=== PATIENT | female | born 1950 | race Caucasian/White ===

== ENCOUNTER 2021-02-24 14:07 | Day surgery (SDC) | payer MEDICARE ==
[2021-02-24] MEDS ORDERED: LIDOCAINE HCL 2% 100 MG/5 ML IJ ONE (14:08)
[2021-02-24] MEDS ORDERED: Depo-Medrol 40 MG/ML IM ONE (14:08)
[2021-02-24] MEDS ORDERED: DIPRIVAN 200 MG/20 ML IV ONE (15:19)
[2021-02-24] MEDS ORDERED: Lactated Ringers 1,000 ML IV ONE (16:31)
--- NOTE | 2021-02-25 11:35 | XRAY ---
10 seconds fluoroscopy time in surgery for bilateral L4-S1 MBB.
== END 2021-02-24 15:50 | disposition home or self-care (01) ==
LOC: SDC-PAIN 14:07
PROVIDERS: ATTEND Psychiatry & Neurology Pain Medicine
DX: M47.816 Spondylosis without myelopathy or radiculopathy, lumbar region (principal); F41.9 Anxiety disorder, unspecified; F32.9 Major depressive disorder, single episode, unspecified; I25.10 Atherosclerotic heart disease of native coronary artery without angina pectoris; M06.9 Rheumatoid arthritis, unspecified; I10 Essential (primary) hypertension; E03.9 Hypothyroidism, unspecified; J44.9 Chronic obstructive pulmonary disease, unspecified; Z79.899 Other long term (current) drug therapy
CPT/HCPCS: 64493; 64494; 72020; 77002; J1030; J2704

== ENCOUNTER 2021-10-05 | Emergency (ER) | payer MEDICARE ==
--- NOTE | 2021-10-05 00:44 | ERPHSYRPT ---
- History of Present Illness Source: patient Exam Limitations: no limitations Patient Subjective Stated Complaint: pt c/o cough, +Covid Triage Nursing Assessment: pt c/o cough, +Covid, c/o rt lung hurting due to pneumonia. lungs clear, diminished to bases. Heart tones reg. Pt has cough, prod at times, white, thick sputum. Pt spent 2 nights in [facility], discharged on 10/03/21 per pt. Physician History: 71 yo diagnosed w CV19 on 10/02/21 w 2 night stay at [facility] present w cough/coryza/dyspnea. Pt has a h/o COPD but denies ever smoking. Fever/myalgias/RUBIO/N/V/D are all denied. Room air sats 93-95%. Timing/Duration: other (4-5 days) Cough Quality/Degree: dry cough Possible Cause: no prior episodes Modifying Factors: Improves With: coughing, exertion Associated Symptoms: cough, nasal congestion, nasal drainage, shortness of breath, No fever, No chills, No chest pain/soreness, No dizziness, No earache, No facial pain, No headache, No lightheadedness, No muscle aches, No sinus infection, No sore throat, No wheezing Allergies/Adverse Reactions: Penicillins Allergy (Severe, Verified 10/05/21 00:30) Hives cephalexin monohydrate [From Keflex] Allergy (Verified 10/05/21 00:30) Hives orange juice Adverse Reaction (Verified 10/05/21 00:30) Home Medications: Acyclovir 200 mg Cap [Zovirax 200 mg ] 200 mg PO 5XD 08/03/15 [History] Albuterol 17 gm IH Q6H PRN PRN 08/03/15 [History] Citalopram Hydrobromide [Citalopram HBr] 40 mg PO BID 08/03/15 [History] Clonazepam 0.5 mg [Klonopin 0.5 MG] 0.5 mg PO DAILY 08/03/15 [History] Cyanocobalamin (Vitamin B-12) [B-12] 500 mg PO DAILY 08/03/15 [History] Cyanocobalamin (Vitamin B-12) [Cyanocobalamin Injection] 1,000 mcg IJ DIRECTIONS UNKNOWN 08/03/15 [History] Fexofenadine HCl [Elza] 180 mg PO DAILY 08/03/15 [History] Furosemide 40 mg PO DAILY 08/03/15 [History] Gabapentin 600 mg PO DAILY 08/03/15 [History] Ginkgo Biloba 120 mg PO DAILY 08/03/15 [History] Hydrocodone/Acetaminophen [[place] 7.5-325 Tablet] 1 each PO TID 08/03/15 [History] Ipratropium [place] [Atrovent] 15 ml NS DAILY PRN 08/03/15 [History] Levothyroxine Sodium 125 mcg PO DAILY 08/03/15 [History] Lidocaine HCl 5% Patch [Lidoderm Patch 5%] 1 patch TOP WEEKLY 08/03/15 [History] Milk Thistle 1,000 mg PO DAILY 08/03/15 [History] Nitroglycerin 0.4 mg Tablet [Nitrostat 0.4 MG Tablet] 0.4 mg SL 5XD 08/03/15 [History] Omeprazole 20 MG [Prilosec 20 mg] 20 mg PO BID 08/03/15 [History] Oxybutynin Chloride [Oxybutynin Chloride ER] 10 mg PO BID 08/03/15 [History] Potassium Chloride 20 Meq [Klor-Con 20 MEQ] 20 meq PO DAILY 08/03/15 [History] [place] Jelly/Bee Pollen/P.ginsg [[place] Ginseng Complex Cap] 1 each PO DAILY 08/03/15 [History] Sulfasalazine 500 mg [Azulfidine 500 mg] 500 mg PO QID 08/03/15 [History] Hx Tetanus, Diphtheria Vaccination/Date Given: Yes Hx Influenza Vaccination/Date Given: No Hx Pneumococcal Vaccination/Date Given: No Immunizations Up to Date: Yes Travel Risk - International Travel Have you traveled outside of the country in past 3 weeks: No - Coronavirus Screening Symptoms: Fever, Cough: New Onset, Shortness of Breath, Vomiting/Diarrhea, Headaches/Body Aches/Fatigue Close contact with a COVID-19 positive Pt in past 14-21 Days: No - Vaccine Status Have you recieved a Covid-19 vaccination: No - Review of Systems Constitutional: No Symptoms, Fatigue, Lethargy, Malaise, Weakness Eyes: No Symptoms Ears, Nose, & Throat: No Symptoms, Nose Congestion, Nose Discharge Respiratory: No Symptoms, Cough, Dyspnea Cardiac: No Symptoms Abdominal/Gastrointestinal: No Symptoms Genitourinary Symptoms: No Symptoms Musculoskeletal: No Symptoms Skin: No Symptoms Neurological: No Symptoms Psychological: No Symptoms Endocrine: No Symptoms Hematologic/Lymphatic: No Symptoms Immunological/Allergic: No Symptoms - Past Medical History Pertinent Past Medical History: Yes Neurological History: Migraines, Peripheral Neuropathy ENT History: No Pertinent History Cardiac History: Other Respiratory History: COPD Endocrine Medical History: Hypothyroidism Musculoskeletal History: Fibromyalgia, Osteoarthritis, Rheumatoid Arthritis, Other GI Medical History: GERD, Hepatitis History: Other Psycho-Social History: Depression Female Reproductive Disorders: No Pertinent History Other Medical History: damaged heart valve, leaky bladder, degenerative joint disease, torn tendons L hand - Past Surgical History Past Surgical History: Yes Neuro Surgical History: No Pertinent History Cardiac: No Pertinent History Respiratory: No Pertinent History Gastrointestinal: Cholecystectomy Genitourinary: Other Musculoskeletal: Other Female Surgical History: Hysterectomy Other Surgical History: R shoulder surgery, bilateral knee replacement, bladder stretched - Social History Smoking Status: Never smoker Exposure to second hand smoke: Yes Drug Use: none Patient Lives Alone: No Significant Family History: no pertinent family hx - Female History Hx Now: No - Nursing Vital Signs Nursing Vital Signs: Initial Vital Signs Temperature 98.7 F 10/05/21 00:19 Pulse Rate 99 H 10/05/21 00:19 Respiratory Rate 22 10/05/21 00:19 Blood Pressure 168/111 10/05/21 00:19 O2 Sat by Pulse Oximetry 93 L 10/05/21 00:19 Pain Scale Pain Intensity 3 Hypertensive/Borderline sats - Physical Exam General Appearance: no apparent distress Eye Exam: PERRL/EOMI, eyes nml inspection Ears, Nose, Throat Exam: normal ENT inspection, TMs normal, pharynx normal, moist mucous membranes Neck Exam: normal inspection, non-tender, supple, full range of motion, No meningismus, No mass, No Brudzinski, No Kernig's, No carotid bruit Respiratory Exam: airway intact, crackles/rales (Scattered rales B), No respiratory distress Cardiovascular Exam: regular rate/rhythm, normal heart sounds, normal peripheral pulses, capillary refill <2 sec, No murmur Gastrointestinal/Abdomen Exam: soft, normal bowel sounds, No tenderness Back Exam: normal inspection, normal range of motion, No CVA tenderness, No vertebral tenderness Extremity Exam: normal inspection, normal range of motion Neurologic Exam: alert, oriented x 3, cooperative, 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, no rmal mood/affect, nml cerebellar function, nml station & gait, sensation nml, No motor deficits, No sensory deficit Skin Exam: normal color, warm, dry Lymphatic Exam: No adenopathy SpO2 Interpretation: normal SpO2: 94 O2 Delivery: Room Air - Course Nursing assessment & vital signs reviewed: Yes EKG Interpreted by Me: RATE (NSR/Normal QT-QTc/Poor R wave progression/Flat T waves/Nonspecific ST-T wave changes) - Radiology Exams Chest X-ray Interpretation: Interpreted by me (CXR consistent w CV19) Ordered Tests: Active Orders 24 hr Category Date Time Status CHEST 1 VIEW (PORTABLE) Stat Exams 10/05/21 00:38 Taken CBC W DIFF Stat Lab 10/05/21 01:20 Completed CMP Stat Lab 10/05/21 01:15 Completed Manual Differential NC Stat Lab 10/05/21 01:20 Completed NT PRO BNP Stat Lab 10/05/21 01:15 Completed PROTIME WITH INR Stat Lab 10/05/21 01:25 Completed PTT Stat Lab 10/05/21 01:25 Completed TROPONIN Q3H Lab 10/05/21 01:15 Completed Medication Summary Discontinued Medications Generic Name Dose Route Start Last Admin Trade Name Freq PRN Reason Stop Dose Admin Dexamethasone Sodium Phosphate 10 mg 10/05/21 02:13 10/05/21 02:21 Dexamethasone Sod Phosphate 10 Mg/Ml IV 10/05/21 02:14 10 mg STAT ONE Administration Dexamethasone Sodium Phosphate Confirm 10/05/21 02:20 Dexamethasone Sod Phosphate 10 Mg/Ml Administered 10/05/21 02:21 Dose 10 mg .ROUTE .STK-MED ONE Lab/Rad Data: Laboratory Result Diagrams 10/05/21 01:20 10/05/21 01:15 Laboratory Results 10/05/21 10/05/21 10/05/21 Range/Units 01:25 01:20 01:15 WBC 5.7 (4.0-10.5) K/mm3 RBC 4.90 (4.1-5.4) M/mm3 Hgb 12.0 (12.0-16.0) gm/dl Hct 38.8 (35-47) % MCV 79.2 (78-100) fl MCH 24.5 L (26-32) pg MCHC 30.9 L (32-36) g/dl RDW 14.9 H (11.5-14.0) % Plt Count 361 (150-450) K/mm3 MPV 8.8 (7.5-11.0) fl PT 13.0 H (9.4-12.5) SECONDS INR 1.10 (0.8-3.0) APTT 28.1 (25.1-36.5) SECONDS Sodium (137-145) mmol/L Potassium (3.5-5.1) mmol/L Chloride (98-107) mmol/L Carbon Dioxide (22-30) mmol/L Anion Gap (5-15) MEQ/L BUN (7-17) mg/dL Creatinine (0.52-1.04) mg/dL Estimated GFR ML/MIN Glucose (74-106) mg/dL Calcium (8.4-10.2) mg/dL Total Bilirubin (0.2-1.3) mg/dL AST (14-36) U/L ALT (0-35) U/L Alkaline Phosphatase (38-126) U/L Troponin I 0.031 (0.000-0.034) ng/mL NT-Pro-B Natriuret Pep (0-900) pg/mL Serum Total Protein (6.3-8.2) g/dL Albumin (3.5-5.0) g/dL 10/05/21 Range/Units 01:15 WBC (4.0-10.5) K/mm3 RBC (4.1-5.4) M/mm3 Hgb (12.0-16.0) gm/dl Hct (35-47) % MCV (78-100) fl MCH (26-32) pg MCHC (32-36) g/dl RDW (11.5-14.0) % Plt Count (150-450) K/mm3 MPV (7.5-11.0) fl PT (9.4-12.5) SECONDS INR (0.8-3.0) APTT (25.1-36.5) SECONDS Sodium 140 (137-145) mmol/L Potassium 3.3 L (3.5-5.1) mmol/L Chloride 99 (98-107) mmol/L Carbon Dioxide 32 H (22-30) mmol/L Anion Gap 12.5 (5-15) MEQ/L BUN 14 (7-17) mg/dL Creatinine 0.71 (0.52-1.04) mg/dL Estimated GFR > 60.0 ML/MIN Glucose 103 (74-106) mg/dL Calcium 8.9 (8.4-10.2) mg/dL Total Bilirubin 0.70 (0.2-1.3) mg/dL AST 25 (14-36) U/L ALT 11 (0-35) U/L Alkaline Phosphatase 59 (38-126) U/L Troponin I (0.000-0.034) ng/mL NT-Pro-B Natriuret Pep 299 (0-900) pg/mL Serum Total Protein 6.8 (6.3-8.2) g/dL Albumin 3.8 (3.5-5.0) g/dL - Progress Progress Note: 10/05/21 02:15 10mg IV Decadron 10/05/21 03:29 Pt w good sats during entire stay Counseled pt/family regarding: lab results, diagnosis, need for follow-up, rad results - Departure Departure Disposition: Home Clinical Impression: COVID-19 Condition: Stable Critical Care Time: No Critical Care Time(excluding separately billable procedures): Critical 30-74 mins Referrals: LAURA MILLAN [Primary Care Provider] - Follow up/PCP as directed Instructions: Cough, Adult (DC), Coronavirus Disease 2019 (COVID-19) (DC) Additional Instructions: Get a pulse oximeter and monitor oxygen saturation 2-3 times a day Return to ER for persistent oxygen saturation less than 90% Follow up with your family MD in 2-3 days
[2021-10-05 01:25] LABS: Hematocrit 38.8 % (35-47); Mean Cell Volume 79.2 fl (78-100); Mean Corpuscular Hemoglobin 24.5 pg (26-32); Mean Corpuscular Hgb Concent. 30.9 g/dl (32-36); Mean Platelet Volume 8.8 fl (7.5-11.0); Platelet Count 361 K/mm3 (150-450); Red Cell Distribution Width 14.9 % (11.5-14.0); White Blood Count 5.7 K/mm3 (4.0-10.5)
[2021-10-05 01:33] LABS: INR 1.1 (0.8-3.0)
[2021-10-05 01:36] LABS: PTT 28.1 SECONDS (25.1-36.5)
[2021-10-05 01:49] LABS: ALBUMIN 3.8 g/dL (3.5-5.0); ALKALINE PHOSPHATASE 59 U/L (38-126); ANION GAP 12.5 MEQ/L (5-15); BLOOD UREA NITROGEN 14 mg/dL (7-17); CHLORIDE 99 mmol/L (98-107); Calcium 8.9 mg/dL (8.4-10.2); Carbon Dioxide 32 mmol/L (22-30); Creatinine 1 0.71 mg/dL (0.52-1.04); EST GLOMERULAR FILTRATION RATE > 60.0 ML/MIN; Glucose 103 mg/dL (74-106); NT PRO BNP 299 pg/mL (0-900); Potassium 3.3 mmol/L (3.5-5.1); SGOT/AST 25 U/L (14-36); SGPT/ALT 11 U/L (0-35); SODIUM 140 mmol/L (137-145); Total Protein 6.8 g/dL (6.3-8.2)
[2021-10-05] MEDS ORDERED: DECADRON 10MG INJ. IV ONE (02:13)
[2021-10-05] MEDS ORDERED: DECADRON 10MG INJ. ONE (02:20)
[2021-10-05 02:22] VITALS: PULSE 97
[2021-10-05 02:24] VITALS: BP 154/92
[2021-10-05 03:30] VITALS: O2SAT 94
[2021-10-05 04:21] LABS: Lymphocytes 18 % (24-44); Microcytosis 1+; Monocyte 4 % (0.0-12.0); Neutrophils 78 % (36.0-66.0); Platelet Estimate NORMAL (NORMAL); Total Cells Counted 100
--- NOTE | 2021-10-05 08:49 | XRAY ---
Indication: Positive Covid 19. Comparison: None Portable chest demonstrates mild diffuse interstitial alveolar opacities left greater than right without consolidation/large effusion. Heart not enlarged. Descending aorta is arteriosclerotic and tortuous. Bony thorax intact with osteopenia, degenerative changes, and right shoulder arthroplasty. Impression: Diffuse bilateral interstitial alveolar opacities. Rule out Covid 19 pneumonia.
== END 2021-10-05 02:32 | disposition home or self-care (01) ==
LOC: ED
DX: U07.1 COVID-19 (principal); R05.9 Cough, unspecified; R09.81 Nasal congestion; R06.00 Dyspnea, unspecified; J44.9 Chronic obstructive pulmonary disease, unspecified; G62.9 Polyneuropathy, unspecified; M79.7 Fibromyalgia; K21.9 Gastro-esophageal reflux disease without esophagitis; Z79.891 Long term (current) use of opiate analgesic; Z79.899 Other long term (current) drug therapy
CPT/HCPCS: 36000; 36415; 71045; 80053; 83880; 84484; 85025; 85610; 85730; 93005; 96374; 99284; 99291; J1100